=== PATIENT | male | born 1935 | race Caucasian/White ===

== ENCOUNTER 2020-02-08 09:55 | Emergency (ER) | payer MEDICARE, OTHER ==
[~2020-02-08] VITALS: Ht 172.7 cm; Wt 72.6 kg
[~2020-02-08 09:55] MED LIST: FERR325E14 PO; OMEP40EC24 PO
[2020-02-08 10:25] VITALS: BP 178/76
--- NOTE | 2020-02-08 10:33 | NUR ---
Triage at bedside.
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
[2020-02-08 11:05] VITALS: BP 178/76
--- NOTE | 2020-02-08 11:06 | NUR ---
Patient discharged with v/s stable. Written and verbal after care instructions given and explained. Patient alert, oriented and verbalized understanding of instructions. Ambulatory with steady gait. All questions addressed prior to discharge. ID band removed. Patient advised to follow up with PMD. Rx of motrin 600mg PO PRN given. Patient educated on indication of medication including possible reaction and side effects. Opportunity to ask questions provided and answered.
== END 2020-02-08 11:06 | disposition home or self-care (01) ==
LOC: MED 09:55
DX: S61.432A Puncture wound without foreign body of left hand, initial encounter (principal); J44.9 Chronic obstructive pulmonary disease, unspecified; Z79.899 Other long term (current) drug therapy; Z48.00 Encounter for change or removal of nonsurgical wound dressing; W26.0XXA Contact with knife, initial encounter; Y93.89 Activity, other specified; Y92.89 Other specified places as the place of occurrence of the external cause; Y99.8 Other external cause status
CPT/HCPCS: 99282

== ENCOUNTER 2021-08-10 10:05 | Emergency (ER) | payer MEDICARE, OTHER ==
[~2021-08-10] VITALS: Ht 172.7 cm; Wt 68.0 kg
[2021-08-10 10:09] VITALS: BP 130/65
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
--- NOTE | 2021-08-10 10:42 | NUR ---
AT PT BEDSIDE
[2021-08-10] MEDS ORDERED: APIX5TAB PO (10:50)
[2021-08-10] MEDS ORDERED: LIP80 PO (10:50)
[2021-08-10] MEDS ORDERED: KEP500 PO (10:50)
[2021-08-10] MEDS ORDERED: AMLO-271 PO (10:50)
[2021-08-10 10:55] VITALS: BP 130/65
--- NOTE | 2021-08-10 10:56 | NUR ---
Patient discharged with v/s stable. Written and verbal after care instructions given and explained. Patient alert, oriented and verbalized understanding of instructions. Wheel Chair Assisted with by caregiver. All questions addressed prior to discharge. ID band removed. Patient advised to follow up with PMD. Rx of AMLODIPINE, ELIQUIS, KEPRA, LIPITOR given. Patient educated on indication of medication including possible reaction and side effects. Opportunity to ask questions provided and answered.
== END 2021-08-10 10:56 | disposition home or self-care (01) ==
LOC: MED 10:05
DX: I48.91 Unspecified atrial fibrillation (principal); R56.9 Unspecified convulsions; I10 Essential (primary) hypertension; E78.5 Hyperlipidemia, unspecified; Z76.0 Encounter for issue of repeat prescription
CPT/HCPCS: 99281